=== PATIENT | female | born 1975 | race Caucasian/White ===

== ENCOUNTER 2023-07-25 11:51 | Day surgery (SDC) | payer OTHER, SELFPAY ==
[2023-07-24 13:33] VITALS: BMI 39.9
[2023-07-25] VITALS (11 sets, daily range): BP systolic 102–136; BP diastolic 55–90; PULSE 66–97; RESP 11–17; TEMP 36–36.8; O2SAT 95–100; BMI 39.9
--- NOTE | 2023-07-25 | DI.RAD.S_ITS ---
PROCEDURE: XR HIP W PEL IF DONE LT 2V INDICATIONS: SANTOSH TECHNIQUE: 6 intraoperative fluoroscopic images of pelvis and left hip acquired. COMPARISON: None. FINDINGS: Intraoperative fluoroscopic images shows left total hip arthroplasty in progress. Left hip alignment is anatomic. IMPRESSION: Fluoro guidance was provided intraoperatively for left total hip arthroplasty. Dictated by: Ashvin Reyes M.D. on 07/25/2023 at 16:20 Approved by: Ashvin Reyes M.D. on 07/25/2023 at 16:20
--- NOTE | 2023-07-25 06:00 | DI.RAD.S_ITS ---
PROCEDURE: XR HIP W PEL IF DONE LT 2V INDICATIONS: post-op SANTOSH TECHNIQUE: AP pelvis and lateral view of the hip acquired. [facility] IF D[facility] 2V, 07/25/2023, 15:14. FINDINGS: Bones: Patient is status post left hip arthroplasty, with hardware components in expected positions. The hip joint appears congruent. The visualized bony structures appear intact. Soft tissues: Overlying postoperative changes are noted. No suspicious soft tissue densities. IMPRESSION: Expected post-operative appearance of a hip arthroplasty. Dictated by: Skylar Nowak M.D. on 07/26/2023 at 16:23 Approved by: Skylar Nowak M.D. on 07/26/2023 at 16:23
--- NOTE | 2023-07-25 13:02 | PM.PREOP ---
Pre-operative Note Interval Note History & Physical reviewed/Exam performed by Physician: Yes Changes to H&P: No
[2023-07-25] MEDS: LACTATED RINGERS 1,000 ML 42 ML IV ×2 (13:07→15:05)
[2023-07-25] MEDS: ACETAMINOPHEN 325 MG TABLET 975 MG PO (13:16)
[2023-07-25] MEDS: MELOXICAM 7.5 MG TABLET PO (13:17)
[2023-07-25] MEDS: VANCOMYCIN 1,000 MG/200 ML PIGGYBACK 200 MG IV (13:21)
--- NOTE | 2023-07-25 13:43 | SUR.OPER ---
Supine on padded [place] table with bilateral legs secured in padded positioning boots and suspended in positioning spars, operative leg in traction per surgeon. Head on one pillow. Arms secured on padded armboard <90 degrees abduction. Padded perineal post in place per surgeon.
[2023-07-25 13:55] LABS: Add Manual Diff / Slide Review NO; Basophils Absolute Auto 0 /uL (0-100); Basophils Percent Auto 0.5 % (0-2); Eosinophils Absolute Auto 100 /uL (0-450); Eosinophils Percent Auto 2.3 % (2-4); Hemoglobin 13.5 g/dL (12.0-16.0); Lymphocytes Absolute Auto 2100 /uL (1100-4500); Lymphocytes Percent Auto 35.3 % (25-40); Mean Corpuscular HGB Conc 33.8 % (30-36); Mean Corpuscular Hemoglobin 30.6 PG (26-34); Mean Corpuscular Volume 90.6 fL (80-100); Monocytes Absolute Auto 400 /uL (0-900); Monocytes Percent Auto 7.6 % (3-14); Neutrophils Absolute Auto 3200 /uL (1500-7000); Neutrophils Percent Auto 54.3 % (50-75); Platelet Count 184 X10^3/uL (150-400); Red Blood Cell Count 4.42 X10^6/uL (4.0-5.2); Red Cell Distribution Width 12.7 % (11.6-14.8); White Blood Cell Count 5.9 X10^3/uL (4.5-11.0)
[2023-07-25 14:05] LABS: BUN Creatinine Ratio 25.5 (6-22); Blood Urea Nitrogen 14 mg/dL (7-17); Calcium 9.4 mg/dL (8.4-10.2); Carbon Dioxide 30 mmol/L (22-32); Chloride 108 mmol/L (98-107); Estimated Glomerular Filt Rate > 60 mL/min (>60); Glucose 102 mg/dL (70-100); HEMOLYSIS < 15 (0-50); Potassium 4.1 mmol/L (3.4-5.1); Sodium 141 mmol/L (137-145)
[2023-07-25] MEDS: CEFAZOLIN 2 GM/100 ML PREMIX 100 ML IV (14:40)
[2023-07-25] MEDS: TRANEXAMIC ACID 1,000 MG VIAL 1000 MG INJ (15:01)
[2023-07-25] MEDS: ROPIVACAINE/EPI/CLONIDINE/KET 50 ML SYRINGE INJ (15:01)
--- NOTE | 2023-07-25 16:39 | P.OP_ITS ---
Operative Date/Time/Diagnoses Date of procedure: 07/25/23 Pre-op diagnosis: Left hip arthritis Post-op diagnosis: same Procedure & Clinicians Procedure: Left total hip arthroplasty (06741) Same procedure as scheduled: Yes Surgeon: Corey Cason Vertical Punch Operator: Paula Nowak Anesthesia Type: Spinal, Sedation and Local Operative Notes Estimated Blood Loss (mL): 500 Procedure in detail: Implants: Depuy Total Hip Arthroplasty: * Depuy Wink Gription size 52 cup? * Depuy Actis femoral stem size 7 high offset? * 36 mm +5 ceramic femoral head? Procedure Summary: 48-year-old female with a history of prior Chevy-en-Y gastric bypass. Has lost significant weight, now with BMI of 39.9. In preparation for surgery I had her utilize vitamin-D supplementation in addition to her standard vitamin supplementation and also had her utilize low-carbohydrate protein supplements. Intraoperatively I was able to achieve an appropriate pinch fit with a 52 mm cup which did not require screws. Her initial trials were performed with a size 7 high offset stem and a +1.5 head. I noted instability with maximum external rotation with the +1.5 head. After up sizing to a +5 head, she had appropriate stability. Leg length, offset, and stem fit were all appropriate fluoroscopically. These implants were utilized Procedure in Detail: This patient was seen preoperatively and evaluated for hip pain which was refractory to numerous nonoperative treatment modalities. Their hip pain correlated with radiographic changes demonstrating significant degeneration in the hip joint. The risks and benefits of continued nonoperative management versus operative management were discussed at length and all of the patient?s questions were answered. Additional educational materials providing further details beyond our discussion in clinic were provided via a publicly available patient education video which included the incidence of medical complications associated with total hip arthroplasty, reasons for revision following total hip arthroplasty, and patient satisfaction rates following total hip arthroplasty. That video can be accessed at [email or web address] . With this understanding of the risks inherent to the procedure, the patient elected to move forward with operative management. Following preoperative optimization, the patient was scheduled for surgery. The patient was met in the preoperative holding area the day of the procedure and all questions were answered. The patient?s nares were swabbed with betadine in order to decolonize them from MRSA. Informed consent was signed and the operative limb was marked with indelible ink.? The patient was brought back to the operating room where anesthesia was induced. The patient was transferred to the [place] table and all bony prominences were padded. The operative site was prepped and draped in the usual sterile fashion. Prior to incision, tranexamic acid and cefazolin were administered. Operative templating images were displayed demonstrating the anticipated implant sizes and correct operative extremity. A timeout procedure was performed verifying the patient?s identity, medical comorbidities, allergies, relevant medications, anesthesia type and the surgical plan. All present were in agreement. The assistance of a physician psychologist research assistant was required for positioning, room setup, soft tissue retraction and wound closure. Without this assistance, the procedure would have been significantly more challenging and time consuming.?? A direct anterior approach to the hip was utilized. This was performed with a longitudinal incision through a Heuter interval. The incision was planned 2 cm distal and 2 cm lateral to the ASIS extending towards the lateral patella, in line with the muscle body of the TFL. Following incision, the subcutaneous tissue was dissected while taking care to avoid injury to the lateral femoral cutaneous nerve. The fascia overlying the TFL was identified by dissecting off the overlying fat and identifying perforating vessels to the TFL. The TFL fascia was incised and dissected away from the medial border of the TFL. A cobra retractor was placed over the superior femoral neck between the abductors and the hip capsule and used to reflect the TFL laterally. A [place] self-retainer was then placed in the distal aspect of the wound between the TFL and the rectus femoris. This was tensioned to open up the direct anterior interval and the lateral circumflex vessels were identified and coagulated using electrocautery. The floor of the TFL fascia was incised, exposing the pericapsular fat overlying the hip capsule. A second cobra retractor was placed on the inferior femoral neck. A double-bent soft tissue retractor was placed on the anterior wall of the acetabulum and used to tension the reflected head of rectus femoris, which was then released in order to limit soft tissue tension. A capsulotomy was made in the midline of the anterior hip capsule in line with the femoral neck ending at the vastus tubercle. The double-bent retractor was removed in order to limit the amount of time that a soft tissue retractor remained on the anterior wall and protect the femoral nerve. Tag stitches were placed in the superior and inferior leaflets of the hip capsule. An [place]es[place] soft tissue retractor was introduced over the tag stitches and tensioned in the interval between the rectus femoris and the TFL in order to retract and protect those muscles. The cobra retractors were replaced intracapsularly, with one over the superior neck in the pocket created by the base of the greater trochanter and the other on the femoral head. The capsulotomy was extended laterally to the base of the greater trochanter and medially to the lesser trochanter. This required externally rotating the hip. Once the lesser trochanter had been identified, a neck cut was planned according to measurements from preoperative templating. A ruler was cut at the length measured between the superior aspect of the lesser trochanter and the collar of the prosthesis. This line was extended towards the inferior aspect of the lateral cobra retractor to plan a cut which would leave minimal residual femoral neck laterally. The neck was cut at 60 degrees of external rotation along that line. A second cut was performed to remove a large napkin ring and facilitate head extraction. The napkin ring cut and femoral head were removed.?? A broad anterior wall retractor was placed between the labrum and the anterior capsule so that the anterior capsule would prevent capturing and pinching the femoral nerve anteriorly. An additional retractor was placed on the posterior wall. External rotation and traction were applied through the [place] table so that the cut surface of the femoral neck would not restrict access to the acetabulum. The labrum was excised sharply and the pulvinar was excised with electrocautery to limit bleeding from branches of the obturator artery. Acetabular reamers were selected based on preoperative templating and measurements of the excised femoral head. These were introduced into the acetabulum. Fluoroscopy was utilized to replicate a standing AP pelvis radiograph by centering over the pelvis, rotating until there was appropriate symmetry between the obturator foramen, and introducing caudal tilt to match the position of the pubic symphysis relative to the sacrococcygeal junction according to the patient?s anatomy. Fluoroscopy was utilized to ensure appropriate reaming depth. Once satisfied with the reaming depth corresponding to the preoperative template and the pinch fit between the columns, an appropriate sized acetabular cup was selected which would provide 1 mm of press-fit. This cup was introduced and manipulated until appropriate abduction and anteversion angles were obtained with careful attention to appropriate abduction and anteversion angles as evaluated by the position of the cup relative to the anterior and posterior santana of the acetabulum and the AP fluoroscopy which recreated the patient?s standing radiograph. The cup was impacted into place. Peripheral osteophytes were removed. The acetabular liner was then placed with care to ensure locking of the locking mechanism.? Attention was then turned to the femur. All retractors were removed, traction was released, a retractor was placed in the interval between the hip capsule and the gluteus minimus, and the hip was externally rotated to 90 degrees. Traction was applied through the [place] table to tension the lateral capsule and this was released using electrocautery. Traction was released and a [place] hook was placed posteriorly around the proximal femur at the level of the vastus ridge. The table height was lowered in order to restrict the tension on the anterior structures during hip hyperextension to limit the risk of femoral nerve palsy. With traction off and the hip at 90 degrees of external rotation, the hip was hyperextended and adducted while manually elevating the femur away from the acetabulum with the [place] hook to ensure it would not be caught behind the greater trochanter. An asymmetric retractor was placed over the calcar and a broad double-pronged retractor was placed over the greater trochanter. The tag stitch capturing the lateral leaflet of the capsule was moved to the medial side, leaving the conjoined and piriformis tendons isolated in the face of the greater trochanter. The hip was externally rotated and elevated. A release of the conjoined tendon was not necessary in order to obtain adequate exposure for broaching. The canal was opened with an opening broach and a rasp was used to remove cancellous bone. A rongeur was used to remove the residual lateral bone at the base of the greater trochanter to avoid placing the stem in varus. The femur was then broached to the appropriate sized stem yielding good rotational fit and fill of the canal as well as appropriate version of the stem trial. Neck and head trials were placed, all retractors were removed and the hip was returned to neutral abduction and extension. I then reduced the hip. Manual stability testing revealed instability with a proximally 90? of external rotation with that +1.5 head size switched to a +5 head.. An AP pelvis fluoroscopic image matching the preoperative standing radiograph was obtained with both lesser trochanters visible and both hips in 40 degrees of external rotation. This demonstrated appropriate leg length and offset. An AP hip fluoroscopic image was obtained with the hip in neutral rotation which demonstrated appropriate canal fill. Hip stability was evaluated with 90 degrees of external rotation and a 45 degree drop test which demonstrated good stability. The hip was dislocated and I returned to the broaching position. The definitive stem was placed and the trunnion was cleaned and dried. I placed a ceramic head onto the trunnion and impacted it into place on the [place] taper.?? All retractors were removed and the hip was reduced. A dilute mixture of betadine and peroxide was used to bathe the soft tissues during final fluoroscopic assessment. Appropriate component positioning was confirmed on an AP pelvis radiograph with the operative and nonoperative legs in 40 degrees of external rotation, evaluating leg length and offset. Appropriate stem fill was evaluated on an AP hip radiograph with the operative leg in neutral rotation. No fractures were identified on these radiographs. Stability was satisfactory with a 90 degree external rotation test as well as a 45 degree drop test. The hip was copiously irrigated with pulse lavage. The capsule was closed with absorbable interrupted suture. The TFL fascia was closed with barbed suture while carefully protecting the lateral femoral cutaneous nerve from entrapment. A mixture of Ropivacaine, Epinephrine, Clonidine and Toradol was infiltrated throughout the soft tissues. The skin was closed with 2-0 and 3-0 sutures. Surgical glue was applied and a soft dressing was placed.??The sponge, instrument and needle counts were reported as being correct at the end of the case.??No obvious complications occurred. The patient was transferred from the [place] table back to a stretcher. The patient emerged from anesthesia without difficulty and was taken to the PACU in a stable condition.? Plan for aftercare: * Anterior hip precautions * Weightbearing as tolerated * Mobilization as soon as the patient has recovered from anesthesia. If physical therapists are unavailable at the time the patient is ready to ambulate, then nursing staff should help patient ambulate * Aspirin 81 twice per day for DVT prophylaxis * Multimodal pain regimen with liquid opioids as patient has trouble with pill formulations of opioids. Should be sent home with liquid opioids for home as well * Anticipate discharge home tomorrow * Follow up at [facility] in 2 weeks * Detailed postoperative instructions available at [email or web address]
[2023-07-25] MEDS: ACETAMINOPHEN IV 1,000 MG/100 ML VIAL 400 MG IV (16:48)
[2023-07-25] MEDS: hydrOXYzine 50 MG/ML INJ 25 MG IM (16:57)
--- NOTE | 2023-07-25 17:12 | P.PN_ITS ---
Subjective Subjective Interval history: Patient seen postoperatively in the PACU. She has had some nausea since surgery. No vomiting. This was managed with Vistaril and is improving. She says she is ?uncomfortable but tolerable? with regards to her pain. She has her ice machine in place. She has intact function of her sciatic and femoral nerves as evidenced by normal motor function of the knee and ankle. She has a warm perfused foot. We will get her up to the floor shortly and plan for her to remain in the hospital overnight before working with physical therapy tomorrow and eventual discharge home tomorrow morning. Exam Vital Signs (past 8 hours): - 07/25/23 12:38 Temperature 97.2 F L Pulse Rate 72 Respiratory Rate 16 Blood Pressure 135/88 Pulse Oximetry 98 Oxygen Delivery Method Room Air Oxygen Delivery Method Room Air Objective Labs 07/25/23 12:58 07/25/23 12:58 Labs: Laboratory Results - last 24 hr 07/25/23 12:58 WBC 5.9 RBC 4.42 Hgb 13.5 Hct 40.0 MCV 90.6 MCH 30.6 MCHC 33.8 RDW 12.7 Plt Count 184 Neut % (Auto) 54.3 Lymph % (Auto) 35.3 [place] % (Auto) 7.6 Eos % (Auto) 2.3 Baso % (Auto) 0.5 Neut # (Auto) 3200 Lymph # (Auto) 2100 [place] # (Auto) 400 Eos # (Auto) 100 Baso # (Auto) 0 Sodium 141 Potassium 4.1 Chloride 108 H Carbon Dioxide 30 BUN 14 Creatinine 0.55 Estimated GFR > 60 BUN/Creatinine Ratio 25.5 H Glucose 102 H Calcium 9.4 Blood Type O Positive Antibody Screen Negative Crossmatch See Detail PFSH Social History household members: spouse Smoking Status: Former smoker
[2023-07-25] MEDS: HYDROMORPHONE 1 MG INJ IV ×2 (17:16→17:20)
[2023-07-25] MEDS: LACTATED RINGERS 1,000 ML 100 ML IV (18:06)
[2023-07-25] MEDS: OXYCODONE 5 MG/5 ML ORAL SOLUTION PO (18:56)
[2023-07-25] MEDS: DOCUSATE 100 MG CAPSULE PO (20:52)
[2023-07-25] MEDS: ASPIRIN EC 81 MG TABLET PO (20:52)
[2023-07-25] MEDS: IBUPROFEN 600 MG TABLET PO (22:46)
[2023-07-25] MEDS: ACETAMINOPHEN 325 MG TABLET 650 MG PO (22:46)
[2023-07-25] MEDS: ONDANSETRON 4 MG/2 ML INJ IV (22:50)
[2023-07-25] MEDS: OXYCODONE 5 MG/5 ML ORAL SOLUTION 10 MG PO (22:50)
[2023-07-25] MEDS: CEFAZOLIN VIAL 3 GM in SODIUM CHLORIDE 0.9% 100 ML IV (22:57)
[2023-07-26] MEDS: OXYCODONE 5 MG/5 ML ORAL SOLUTION 10 MG PO ×2 (02:46→10:01)
[2023-07-26 02:48] VITALS: BP 105/63; PULSE 69; RESP 16; TEMP 35.9; O2SAT 97
[2023-07-26 05:04] LABS: Hematocrit 31.1 % (36-46); Hemoglobin 10.7 g/dL (12.0-16.0)
[2023-07-26] MEDS: IBUPROFEN 600 MG TABLET PO (06:16)
[2023-07-26] MEDS: CEFAZOLIN VIAL 3 GM in SODIUM CHLORIDE 0.9% 100 ML IV (06:16)
[2023-07-26] MEDS: ACETAMINOPHEN 325 MG TABLET 650 MG PO (06:19)
[2023-07-26] MEDS: OXYCODONE 5 MG/5 ML ORAL SOLUTION PO (07:10)
[2023-07-26] MEDS: DOCUSATE 100 MG CAPSULE PO (08:22)
[2023-07-26] MEDS: ASPIRIN EC 81 MG TABLET PO (08:22)
--- NOTE | 2023-07-26 08:40 | PT.IIE ---
Current Diagnoses Unilateral primary osteoarthritis, left hip (07/25/23) Presence of unspecified artificial hip joint (07/25/23) Surgery Performed Operation Date: 07/25/23 13:45 Actual Procedures p Total Hip Arthroplasty/Anterior Approach(Left) - Corey Cason MD Physical Therapy Inpatient Evaluation/Re-Eval M1 PT/OT-IP Prior Functional Status Start: 07/26/23 12:45 Freq: NEEDED Status: Active Protocol: Document 07/26/23 08:40 AB (Rec: 07/26/23 13:04 AB [id number]) Medical Review Prior Functional Status Medical History Reviewed Yes Communication able to make needs known Mobility and Gait pt stated that she was indpeendent with all mobilities and ambulation without AD with occasional use of FWW Social History Household Members spouse Living Arrangements House Number of Floors (Floors) Two Floors Number of Stairs To Enter/Railing? 20 steps R rail ascending to 2nd floor bed room Home Environment Standard Height Toilet,Tub/ Shower Home Equipment Front Wheel Walker,Raised Toilet Seat Without Armrests, Hand Held Shower,Grab Bars In Shower Additional Social History Comment tp has a hospital bed wtih B rails M2 PT-IP Current Condition Start: 07/26/23 12:45 Freq: NEEDED Status: Active Protocol: Document 07/26/23 08:40 AB (Rec: 07/26/23 13:04 AB [id number]) Physical Therapy Current Condition Current Condition Evaluation Date 07/26/23 Treatment Diagnosis s/p L SANTOSH anterior; difficulty in walking Onset Date 07/25/23 M3 PT-IP Subjective Start: 07/26/23 12:45 Freq: NEEDED Status: Active Protocol: Document 07/26/23 08:40 AB (Rec: 07/26/23 13:04 AB [id number]) Subjective Physical Therapy Visit Type Type Initial Evaluation Visit Start Time 08:40 Visit Stop Time 11:08 Notes pt seen for split visits: 840 to 910 and 1025 am to 1108 Number of HOT METAL CHARGER Visits 0 Physical Therapy Visit Comments Patient Comments agreeable to do PT Therapy Pain Assessment Pain When Pain Assessed At Rest Pain Present Pain Present Pain Reported Location back Intensity 6 Scale Used Numeric (0 - 10) Pain Management Techniques Apply Cold,Distraction, Modification of Treatment,Re- positioning,Timing of Activity with Medications M4 PT-IP Mobility and Gait Start: 07/26/23 12:45 Freq: NEEDED Status: Active Protocol: Document 07/26/23 08:40 AB (Rec: 07/26/23 13:04 AB [id number]) PT-Bed Mobility Assessment Supine to Sit Supine to Sit Standby Assistance PT-Transfer Assessment Sit to and From Stand Sit to and from Stand Contact Guard Assistance,1 Person Assistance,Use of Upper Extremities Equipment Transfer Assistive Device Gait Belt,Front Wheeled Walker Orthotic/Prosthetic Devices or Brace: No Transfers Transfer Destination Chair Transfer Technique ambulated Comments Mobility Comments nurse informed PT that pt's next pain meds will be at 10am and to see pt after 10. checked on pt and agreed to initiate eval. spouse in room with pt. obtained PLOF and home set up. educated on equipement needs. post-op folder also provided to pt and educated on anterior hip precautions on LLE. pt got a little frustrated due to information being different from what her pre-op PT told her. explain hip precautions to pt. checked back on pt after 10 am and pt agreed to do PT. pt stated that she has been using the toilet with spouse assisting her in her room without any issues. MMT checked in supine. completed heel slides on LLE requiring AAROM due to c/o pain and tightness. instructed spouse on how to assist pt with heel slides at home. pt completed supine to sit SBA with HOB elevated. pt able to sit on EOB SBA. pt completed sit to stand CGA and ambulated in room using FWW CGA ~ 20 ft . pt sat back on EOB. caregiver training conducted. educated spouse on how to use safety belt and how to assist pt. spouse was able to put safety belt on pt. spouse assisted pt with sit to stand and ambulation in the hallway using FWW CGA ~ 125 ft. stair climbing training. educated pt and spouse regarding stair training. pt completed up/down steps holding on to R rail with B hands CGA to min A and cues. pt only completed 1 set and refused to do further. stated that she got it and spouse comfortable with assist pt with mobility. assisted pt back to her room. pt also refused to bed mobility training and stated that her spouse has helped her into the bed a few times already in her room when she used the toilet. pt ambulated from w/c to chair using fWW sBA to CGA. positioned pt in bed. call light and table placed within reach. pt and spouse without further concerns. informed nurse that pt is awaiting for d/c. Gait Assessment Gait Gait Assistance Required: Standby Assistance,Contact Guard Assist,1 Person Assist Distance (Feet) 125 Able to Maintain Weight Bearing Status Yes During Gait Assistive Devices Assistive Device Gait Belt,Front Wheeled Walker Orthotic/Prosthetic Devices or Brace: No Gait Deviations General Gait Pattern Antalgic,Decreased Feet Clearance Factors Limiting Gait Function Factors Limiting Gait Function Decreased Activity Tolerance, Decreased Strength,Limited Range of Motion,Pain,Poor Balance,Poor Safety Awareness Stair Climbing Assessment Evaluation Level of Assist On Stairs Contact Guard Assistance, Minimal Assistance,1 Person Assistance Devices Stair Climbing Assistive Devices Right Railing Technique/Endurance Stair Climbing Direction Ascend and Descend Stair Climbing Technique Step to Step Number of Steps Climbed 3 Query Text: Stair Climbing Set # Repetitions (reps) 1 PT-Balance Assessment Sitting Balance and Reactions Static Sitting Balance Ability Good Dynamic Sitting Balance Ability Good Standing Balance and Reactions Static Standing Balance Ability Fair Dynamic Standing Balance Ability Fair Device Used FWW M5 PT-IP Objective Assessments Start: 07/26/23 12:45 Freq: NEEDED Status: Active Protocol: Document 07/26/23 08:40 AB (Rec: 07/26/23 13:04 AB [id number]) Orientation Orientation/Cognition Level of Alertness Alert Orientation Name,Place,Situation Language Function Ability No Deficits Noted Safety Awareness Decreased Safety Awareness Memory Description No Deficits Noted Gross Range of Motion Lower Extremity ROM Assessment Within Functional Limits Strength Lower Extremity Strength Assessment Left Impaired Hip 3-/5 Knee 3+/5 Muscle Tone Muscle Tone WNL Yes M6 PT-IP Treatment Start: 07/26/23 12:45 Freq: NEEDED Status: Active Protocol: Document 07/26/23 08:40 AB (Rec: 07/26/23 13:04 AB [id number]) Physical Therapy Treatment Education Education Provided Precautions,Weight Bearing Status,Post-Op Packet,Safety M7 PT-IP Assessment and Plan Start: 07/26/23 12:45 Freq: NEEDED Status: Active Protocol: Document 07/26/23 08:40 AB (Rec: 07/26/23 13:04 AB [id number]) PT Summary Assessment and Plan Potential Rehabilitation Potential Fair Status of Condition at Evaluation Evolving Summary Impairments Pain,ROM,Strength,Balance, Coordination,Sensation,Tone, Cognition,Bed Mobility, Transfers,Gait,Activity Tolerance Assessment Summary pt is a 48 y/o F s/p L SANTOSH anterior approach POD 1. pt has LLE anterior hip precautions and is WBAT. caregiver training conducted and spouse was able to assist pt. pt state that she has outpt PT set up. pt may go home when medically stable. Goals Bed Mobility Goal Independent Transfer Goal Independent,Front Wheeled Walker Gait Goal Independent,Front Wheel Walker Gait Distance 200 Other Goals up/down 20 steps R rail SBA Days to Meet Goals 5 Frequency of Treatment Frequency Of Treatment Twice a Day Treatment Plan Physical Therapy Treatment Plan Bed Mobility Training,Transfer Training,Gait Training, Therapeutic Exercise,Balance Retraining,Post Op Education, Discharge Planning,Hot or Cold Pack,Neuromuscular Re-ed, Coordination Retraining,Manual Therapy Precautions Anterior Hip Precautions No Hip Extension,No Hip External Rotation Weight Bearing Status Weight Bearing Status Weight Bear as Tolerated Allowed Weight Bearing Amount (enter % LLE WBAT or #) (%) Recommendations To Nursing Amount of Assist Needed 1 Person Assist Discharge Recommendations PT Discharge Recommendations Home with Assistance, Outpatient PT Transportation Needs at Discharge Private Vehicle
[2023-07-26 09:22] VITALS: BP 111/66; PULSE 67; RESP 16; TEMP 37; O2SAT 98
--- NOTE | 2023-07-26 09:56 | PM.DS.1 ---
History of Present Illness History of Present Illness Date Patient Seen: 07/26/23 Time Patient Seen: 09:56 Chief complaint: Left SANTOSH *OPB* Narrative: Operative Date/Time/Diagnoses Date of procedure: 07/25/23 Pre-op diagnosis: Left hip arthritis Post-op diagnosis: same Procedure & Clinicians Procedure: Left total hip arthroplasty (11814) Same procedure as scheduled: Yes Surgeon: Corey Cason Senior User Experience Architect: Paula Nowak Anesthesia Type: Spinal, Sedation and Local Operative Notes Estimated Blood Loss (mL): 500 Procedure in detail: Implants: Depuy Total Hip Arthroplasty: Depuy [place] Gription size 52 cup? Depuy Actis femoral stem size 7 high offset? 36 mm +5 ceramic femoral head? Discharge Providers Provider Discharge Date: 07/26/23 Primary care physician: Jayme Alamo MD Consults: 07/25/23 06:00 Consult to Anesthesiology Routine Comment: Consulting Provider: Anesthesiologist Reason for consultation: Regional block for post operative pain control 07/25/23 17:44 Consult to Discharge Planning Routine Comment: Consult to Physical Therapy Evaluate & Treat Comment: Physician Instructions: post op SANTOSH protocol Discharge provider: Maureen Melendez PA-C Summary Hospital Course Discharge Diagnosis: Left hip osteoarthritis, s/p left total hip arthroplasty Hospital Course: Ms Espinoza's hospital course was unremarkable. On the morning of POD# 1, she was feeling well and wanted to go home. She was eating and voiding without difficulty and her pain was well-controlled with oral medication. She was evaluated by PT prior to discharge and they felt she was appropriate for homegoing. Exam Vital Signs (past 8 hours): - 07/26/23 02:48 07/26/23 07:00 07/26/23 09:22 Temperature 96.7 F L 98.6 F Pulse Rate 69 67 Respiratory Rate 16 16 Blood Pressure 105/63 111/66 Pulse Oximetry 97 98 Oxygen Delivery Method Room Air Oxygen Flow Rate 0 Oxygen Delivery Method Room Air Oxygen Flow Rate 0 Narrative Exam Narrative: 5/5 strength in hip flexors, quadriceps, hamstrings, DF, PF, EHL on right. Sensation to light touch intact throughout RLE, calf soft and compressible. Aquacel dressing CDI. Objective Labs 07/26/23 04:23 07/25/23 12:58 Labs: Laboratory Results - last 24 hr 07/25/23 07/26/23 12:58 04:23 WBC 5.9 RBC 4.42 Hgb 13.5 10.7 L Hct 40.0 31.1 L MCV 90.6 MCH 30.6 MCHC 33.8 RDW 12.7 Plt Count 184 Neut % (Auto) 54.3 Lymph % (Auto) 35.3 Major % (Auto) 7.6 Eos % (Auto) 2.3 Baso % (Auto) 0.5 Neut # (Auto) 3200 Lymph # (Auto) 2100 Major # (Auto) 400 Eos # (Auto) 100 Baso # (Auto) 0 Sodium 141 Potassium 4.1 Chloride 108 H Carbon Dioxide 30 BUN 14 Creatinine 0.55 Estimated GFR > 60 BUN/Creatinine Ratio 25.5 H Glucose 102 H Calcium 9.4 Blood Type O Positive Antibody Screen Negative Crossmatch See Detail PFSH Social History household members: spouse Smoking Status: Former smoker Discharge Assessment & Plan Assessment and Plan Assessment: Left hip osteoarthritis, s/p left total hip arthroplasty Plan of Treatment: Discharge home, ASA BID x 6 weeks for VTE prophylaxis, no NSAIDs d/t h/o gastric bypass. Multimodal pain control to include liquid hydrocodone and APAP, outpt PT, f/u in office in 2 weeks as scheduled. Discharge Plan Discharge Plan Patient Disposition: Home Discharge orders & Medications Discharge Orders: Discharge (Order); Ordered 07/26/23 Ordered By: Maureen Melendez Prescriptions: New hydrocodone-acetaminophen 7.5-325 mg/15 mL solution 15 ml PO Q4-6H PRN (Reason: pain (scale score 4-6)) Qty: 473 0RF aspirin 81 mg Tablet,Delayed Release (Dr/Ec) 81 mg PO BID Qty: 90 0RF acetaminophen 500 mg/15 mL liquid 500 mg PO QID PRN (Reason: fever or pain) Qty: 237 0RF Rx Instructions: DO NOT EXCEED 3000MG TOTAL ACETAMINOPHEN IN 24 HOURS Discontinued tramadol 50 mg tablet 50 mg PO 3XD Follow up/Referrals: Corey Cason MD [Physician] - 08/07/23 2:30 pm (Follow up w/ Manuel Albert PA-C, at [facility] office in [place].) Jayme Alamo MD [Primary Care Provider] - Diet/Activity/Treatments Diet: Diet as Tolerated Activity: Weightbearing as tolerated to right leg. Anterior hip precautions. Cold/Heat Therapy: Ice to hip as needed for pain. Skin/Wound/Dressing Care Report to your healthcare provider any signs of infection, such as:: chills, fever, night sweats, unusual drainage and unusual redness Dressing: May shower. Leave dressing in place until follow up in office. No bathing or otherwise soaking incision. Call the office if the dressing becomes saturated inside. Visit Report/Discharge Packet Instructions: DI for Hip Replacement, DI for Prescription Opioid Use Stand Alone Forms: Patient Portal/API, Surgery Discharge Discharge Data Primary Care Provider: Jayme Alamo Attending Provider: Corey Cason
--- NOTE | 2023-07-26 10:57 | CM.DANOTE ---
Initial DCP Assessment Note Pt is a 48 yo female, resident of [place], now POD#1 from s/p left total hip arthroplasty by DR Cason PCP: Jayme Alamo Payer: Dagmar Reviewed chart, pt discussed in multidisciplinary rounds this morning. Therapy has cleared pt for return home w/family to assist and pt has planned for home, DC order from Ortho has already been initiated this morning. No barriers identified at this time to patient's safe discharge home w/family to assist; close outpatient f/u recommended. CM team will plan to follow closely in case any DC needs or concerns arise. SEBLE Saleh Discharge Planning/Care Management CM Discharge Assessment Start: 07/26/23 10:43 Freq: Status: Active Protocol: Document 07/26/23 10:43 LORI (Rec: 07/26/23 10:57 LORI [id number]) Discharge Planning Assessment Assigned Cloth Picker SEBLE Dyer DPOA/Assigned Designee Name Vipin Espinoza, spouse Contact Information [phone] Advance Directives? No History Provided By Patient,Significant Other, Medical Record Prior Living Arrangements House Household Members spouse Type of transporation used prior to Drives own vehicle admit Independent with ADL's Yes Is patient alert and oriented? Yes Patient/Family Preference OP PT Therapy Barriers to Discharge No Comment Home w/spouse Discharge Plan Home Transportation Arrangement Spouse Referrals Initiated None needed
--- NOTE | 2023-07-26 11:34 | PC.NURSE ---
Patient discharge teaching done with patient and spouse at bedside. Printed prescriptions were handed to patient to take to pharmacy. Belongings were gathered by spouse. Patient and spouse state understanding of hip precautions, meds, and all teaching of discharge. Will call when ready to depart from room.
== END 2023-07-26 12:00 | disposition home or self-care (01) ==
LOC: OR 11:55 → AC 11:58
PROVIDERS: Student in an Organized Health Care Education/Training Program; PCP Family Medicine; Referring Provider Family Medicine; Visit Provider Orthopaedic Surgery Adult Reconstructive Orthopaedic Surgery
PROC: (CPT 27130; principal; 2023-07-25 13:45)
DX: M16.12 Unilateral primary osteoarthritis, left hip (principal); E66.01 Morbid (severe) obesity due to excess calories; Z68.39 Body mass index [BMI] 39.0-39.9, adult
CPT/HCPCS: 27130; 36415; 73502; 76000; 80048; 85014; 85018; 85025; 86850; 86900; 86901; 97161; 97530; C1776; J0136; J0690; J1100; J1170; J1200; J2250; J2405; J2704; J3010; J3410

== ENCOUNTER 2023-10-18 11:27 | Observation (INO) | payer OTHER, SELFPAY ==
[2023-07-25 12:02] VITALS: BMI 39.9
[2023-10-06 13:46] VITALS: BMI 39.4
[2023-10-17] VITALS (18 sets, daily range): BP systolic 93–137; BP diastolic 44–86; PULSE 55–96; RESP 12–18; TEMP 35.7–37.3; O2SAT 94–100; BMI 39.4; BMI 39.0
--- NOTE | 2023-10-17 | DI.RAD.S_ITS ---
PROCEDURE: XR HIP W PEL IF DONE RT 2V INDICATIONS: RT TOTAL HIP TECHNIQUE: 4 operative view(s) of the hip acquired. [facility] LT 2[facility], 07/25/2023, 16:31. FINDINGS: 4 operative C-arm images were obtained during performance of a total right hip arthroplasty. No radiographic evidence of complications. IMPRESSION: Operative imaging utilized during total right hip arthroplasty. Dictated by: Law Kendall M.D. on 10/17/2023 at 17:37 Approved by: Law Kendall M.D. on 10/17/2023 at 17:38
--- NOTE | 2023-10-17 07:25 | DI.RAD.S_ITS ---
PROCEDURE: XR HIP W PEL IF DONE RT 2V INDICATIONS: SANTOSH TECHNIQUE: AP pelvis and lateral view of the hip acquired. COMPARISON: [facility], [facility], XR HIP W PEL IF DONE RT 2V, 10/17/2023, 14:52. [facility], [facility], XR HIP W PEL IF DONE LT 2V, 07/25/2023, 16:31. FINDINGS: Bones: Patient is status post right hip arthroplasty, with hardware components in expected positions. The hip joint appears congruent. The visualized bony structures appear intact. Soft tissues: Overlying postoperative changes are noted. No suspicious soft tissue densities. IMPRESSION: Expected post-operative appearance of a hip arthroplasty. Dictated by: Jason Simon M.D. on 10/17/2023 at 17:00 Approved by: Jason Simon M.D. on 10/17/2023 at 17:00
[2023-10-17] MEDS: LACTATED RINGERS 1,000 ML 42 ML IV ×2 (12:46→15:22)
[2023-10-17] MEDS: ACETAMINOPHEN 325 MG TABLET 975 MG PO (12:49)
--- NOTE | 2023-10-17 13:45 | PM.PREOP ---
Pre-operative Note Interval Note History & Physical reviewed/Exam performed by Physician: Yes Changes to H&P: No
--- NOTE | 2023-10-17 14:02 | SUR.OPER ---
Supine on padded [place] table with bilateral legs secured in padded positioning boots and suspended in positioning spars, operative leg in traction per surgeon. Head on one pillow. Arms on non-operative side secured on padded armboards <90 degrees abduction. Padded perineal post in place per surgeon.
[2023-10-17] MEDS: CEFAZOLIN 2 GM/100 ML PREMIX 100 ML IV ×2 (14:15→21:24)
[2023-10-17] MEDS: TRANEXAMIC ACID 1,000 MG VIAL 1000 MG INJ (14:20)
[2023-10-17] MEDS: BUPIVACAINE 0.25% (PF) 60 ML, EPINEPHrine 0.15 MG INJ (14:33)
[2023-10-17] MEDS: BUPIVACAINE LIPOSOME 266 MG/20 ML VIAL INJ (15:28)
--- NOTE | 2023-10-17 15:43 | P.OP_ITS ---
Operative Date/Time/Diagnoses Date of procedure: 10/29/23 Pre-op diagnosis: Right hip osteoarthritis Post-op diagnosis: same Procedure & Clinicians Procedure: Right total hip arthroplasty Same procedure as scheduled: Yes Surgeon: Corey Cason Sludge Filtration Attendant: Maureen Melendez Anesthesia Type: Spinal, Sedation and Local Operative Notes Estimated Blood Loss (mL): 300 Procedure in detail: Right Uncemented Direct Anterior Total Hip Arthroplasty: Implants: Right Depuy Total Hip Arthroplasty: * Depuy Schroeder Gription size 54 cup? * Depuy Actis femoral stem size 7 high offset? * 36 mm +5 ceramic femoral head? Procedure Summary: This 48-year-old female patient had previously undergone a left total hip arthroplasty performed by myself several months prior. Her postoperative course has been routine. During that procedure I placed a 52 cup, a 7 high offset stem, and a 36 mm +5 head. I intended to place the same implant sizes during today's procedure. On the acetabular side I found that the 51 mm Reamer had some slight toggling so I did upsized to a 53 mm Reamer and placed a 54 mm cup. On the femoral side I found that the same size implants gave equal leg length and offset with appropriate stability. I therefore placed the same 7 high offset and 36 mm +5 implants on this side today. Procedure in Detail: This patient was seen preoperatively and evaluated for hip pain which was refractory to numerous nonoperative treatment modalities. Their hip pain correlated with radiographic changes demonstrating significant degeneration in the hip joint. The risks and benefits of continued nonoperative management versus operative management were discussed at length and all of the patient?s questions were answered. Additional educational materials providing further details beyond our discussion in clinic were provided via a publicly available patient education video which included the incidence of medical complications associated with total hip arthroplasty, reasons for revision following total hip arthroplasty, and patient satisfaction rates following total hip arthroplasty. That video can be accessed at [email or web address] . With this understanding of the risks inherent to the procedure, the patient elected to move forward with operative management. Following preoperative optimization, the patient was scheduled for surgery. The patient was met in the preoperative holding area the day of the procedure and all questions were answered. The patient?s nares were swabbed with betadine in order to decolonize them from MRSA. Informed consent was signed and the operative limb was marked with indelible ink.? The patient was brought back to the operating room where anesthesia was induced. The patient was transferred to the [place] table and all bony prominences were padded. The operative site on the right limb was prepped and draped in the usual sterile fashion. Prior to incision, tranexamic acid and cefazolin were administered. Operative templating images were displayed demonstrating the anticipated implant sizes and correct operative extremity. A timeout procedure was performed verifying the patient?s identity, medical comorbidities, allergies, relevant medications, anesthesia type and the surgical plan. All present were in agreement. The assistance of a physician social and human services assistant was required for positioning, room setup, soft tissue retraction and wound closure. Without this assistance, the procedure would have been significantly more challenging and time consuming.?? A direct anterior approach to the hip was utilized. This was performed with a longitudinal incision through a Heuter interval. The incision was planned 2 cm distal and 2 cm lateral to the ASIS extending towards the lateral patella, in line with the muscle body of the TFL. Following incision, the subcutaneous tissue was dissected while taking care to avoid injury to the lateral femoral cutaneous nerve. The fascia overlying the TFL was identified by dissecting off the overlying fat and identifying perforating vessels to the TFL. The TFL fascia was incised and dissected away from the medial border of the TFL. A cobra retractor was placed over the superior femoral neck between the abductors and the hip capsule and used to reflect the TFL laterally. A Vinton self-retainer was then placed in the distal aspect of the wound between the TFL and the rectus femoris. This was tensioned to open up the direct anterior interval and the lateral circumflex vessels were identified and coagulated using electrocautery. The floor of the TFL fascia was incised, exposing the pericapsular fat overlying the hip capsule. A second cobra retractor was placed on the inferior femoral neck. A double-bent soft tissue retractor was placed on the anterior wall of the acetabulum and used to tension the reflected head of rectus femoris, which was then released in order to limit soft tissue tension. A capsulotomy was made in the midline of the anterior hip capsule in line with the femoral neck ending at the vastus tubercle. The double-bent retractor was removed in order to limit the amount of time that a soft tissue retractor remained on the anterior wall and protect the femoral nerve. Tag stitches were placed in the superior and inferior leaflets of the hip capsule. An Onesimo soft tissue retractor was introduced over the tag stitches and tensioned in the interval between the rectus femoris and the TFL in order to retract and protect those muscles. The cobra retractors were replaced intracapsularly, with one over the superior neck in the pocket created by the base of the greater trochanter and the other on the femoral head. The capsulotomy was extended laterally to the base of the greater trochanter and medially to the lesser trochanter. This required externally rotating the hip. Once the lesser trochanter had been identified, a neck cut was planned according to measurements from preoperative templating. A ruler was cut at the length measured between the superior aspect of the lesser trochanter and the collar of the prosthesis. This line was extended towards the inferior aspect of the lateral cobra retractor to plan a cut which would leave minimal residual femoral neck laterally. The neck was cut at 60 degrees of external rotation along that line. A second cut was performed to remove a large napkin ring and facilitate head extraction. The napkin ring cut and femoral head were removed.?? A broad anterior wall retractor was placed between the labrum and the anterior capsule so that the anterior capsule would prevent capturing and pinching the femoral nerve anteriorly. An additional retractor was placed on the posterior wall. External rotation and traction were applied through the [place] table so that the cut surface of the femoral neck would not restrict access to the acetabulum. The labrum was excised sharply and the pulvinar was excised with electrocautery to limit bleeding from branches of the obturator artery. Acetabular reamers were selected based on preoperative templating and measurements of the excised femoral head. These were introduced into the acetabulum. Fluoroscopy was utilized to replicate a standing AP pelvis radiograph by centering over the pelvis, rotating until there was appropriate symmetry between the obturator foramen, and introducing caudal tilt to match the position of the pubic symphysis relative to the sacrococcygeal junction according to the patient?s anatomy. Fluoroscopy was utilized to ensure appropriate reaming depth. Once satisfied with the reaming depth corresponding to the preoperative template and the pinch fit between the columns, an appropriate sized acetabular cup was selected which would provide 1 mm of press-fit. This cup was introduced and manipulated until appropriate abduction and anteversion angles were obtained with careful attention to appropriate abduction and anteversion angles as evaluated by the position of the cup relative to the anterior and posterior santana of the acetabulum and the AP fluoroscopy which recreated the patient?s standing radiograph. The cup was impacted into place. Peripheral osteophytes were removed. The acetabular liner was then placed with care to ensure locking of the locking mechanism.? Attention was then turned to the femur. All retractors were removed, traction was released, a retractor was placed in the interval between the hip capsule and the gluteus minimus, and the hip was externally rotated to 90 degrees. Traction was applied through the [place] table to tension the lateral capsule and this was released using electrocautery. Traction was released and a [place] hook was placed posteriorly around the proximal femur at the level of the vastus ridge. The tabl e height was lowered in order to restrict the tension on the anterior structures during hip hyperextension to limit the risk of femoral nerve palsy. With traction off and the hip at 90 degrees of external rotation, the hip was hyperextended and adducted while manually elevating the femur away from the acetabulum with the [place] hook to ensure it would not be caught behind the greater trochanter. An asymmetric retractor was placed over the calcar and a broad double-pronged retractor was placed over the greater trochanter. The tag stitch capturing the lateral leaflet of the capsule was moved to the medial side, leaving the conjoined and piriformis tendons isolated in the face of the greater trochanter. The hip was externally rotated and elevated. A release of the conjoined tendon was not necessary in order to obtain adequate exposure for broaching. The canal was opened with an opening broach and a rasp was used to remove cancellous bone. A rongeur was used to remove the residual lateral bone at the base of the greater trochanter to avoid placing the stem in varus. The femur was then broached to the appropriate sized stem yielding good rotational fit and fill of the canal as well as appropriate version of the stem trial. Neck and head trials were placed, all retractors were removed and the hip was returned to neutral abduction and extension. I then reduced the hip. Initial trialing was performed with a size 7 broach, a high offset neck and a +5 head. I initially manually externally rotated the hip and found I was unable to dislocate the hip. I then locked the hip in 45 degrees of external rotation and dropped it to the floor with traction off which demonstrated no instability. An AP pelvis fluoroscopic image matching the preoperative standing radiograph with both lesser trochanters visible and both hips in 40 degrees of external rotation demonstrated appropriate leg length and offset while using a long metal bar to map across the transitional line to compensate for any fluoroscopic distortion. AP and lateral hip fluoroscopic images were obtained to evaluate the broach size which demonstrated appropriate canal fill. The hip was dislocated and I returned to the broaching position. Based on my evaluation during initial trialing I planned to place the implants I had trialed with which matched the other side. The definitive stem was placed and the trunnion was cleaned and dried. I placed a ceramic head onto the trunnion and impacted it into place on the [place] taper.?? All retractors were removed and the hip was reduced. A dilute mixture of betadine and peroxide was used to bathe the soft tissues during final fluoroscopic assessment. Appropriate component positioning was confirmed on an AP pelvis radiograph with the operative and nonoperative legs in 40 degrees of external rotation, evaluating leg length and offset. Appropriate stem fill was evaluated on AP and lateral hip radiographs. No fractures were identified on these radiographs. There was no hip instability with maximum external rotation as well as a 45 degree drop test. The hip was copiously irrigated with pulse lavage. The capsule was closed with absorbable interrupted suture. The TFL fascia was closed with barbed suture while carefully protecting the lateral femoral cutaneous nerve from entrapment. A mixture of Exparel and local anesthetic was infiltrated throughout the soft tissues. The skin was closed with 2-0 and 3-0 sutures. Surgical glue was applied and a soft dressing was placed.??The sponge, instrument and needle counts were reported as being correct at the end of the case.??No obvious complications occurred. The patient was transferred from the [place] table back to a stretcher. The patient emerged from anesthesia without difficulty and was taken to the PACU in a stable condition.? Plan for aftercare: * Anterior hip precautions * Weightbearing as tolerated * Aspirin 81 twice per day for DVT prophylaxis * Anticipate discharge home tomorrow * Change into normal clothes upon arrival on the hospital floor * Mobilize in the halls as much as is logistically possible. If physical therapy is unavailable for mobilization, then patient should mobilize with nursing staff * Multimodal pain regimen with no IV opioids ordered. No NSAIDs ordered either given the patient's history of gastric bypass * Apply ice machine to operative hip. Ensure that sufficient ice is in the chamber for the pad to remain cold * Follow up at [facility] in 2 weeks * Detailed postoperative instructions available at [email or web address]
[2023-10-17] MEDS: METOCLOPRAMIDE 10 MG/2 ML INJ IV (16:14)
[2023-10-17] MEDS: fentaNYL 100 MCG/2 ML INJ IV (16:16)
[2023-10-17] MEDS: hydrOXYzine 50 MG/ML INJ 25 MG IM (16:18)
[2023-10-17] MEDS: OXYCODONE IR 5 MG TABLET PO ×2 (16:19→16:49)
[2023-10-17] MEDS: HYDROMORPHONE 1 MG INJ IV (16:31)
[2023-10-17] MEDS: MIDAZOLAM 2 MG/2 ML VIAL IV (16:42)
[2023-10-17] MEDS: ACETAMINOPHEN 325 MG TABLET 650 MG PO (17:53)
[2023-10-17] MEDS: LACTATED RINGERS 1,000 ML 100 ML IV (17:53)
--- NOTE | 2023-10-17 18:55 | PC.NURSE ---
Patient was given versed, fentanyl, hydroxizine, and 2 oral percolone prior to coming up to room. She will be due for more pain medication arohaydee 194. Her dressing to R.anterior hip is cdi. Patient ate well at dinner and is visiting with her now. She has an ice machine on her hip. Resting comfortably.
[2023-10-17] MEDS: OXYCODONE 5 MG/5 ML ORAL SOLUTION 10 MG PO ×2 (19:55→23:52)
[2023-10-17] MEDS: DOCUSATE 100 MG CAPSULE PO (21:24)
[2023-10-17] MEDS: ASPIRIN EC 81 MG TABLET PO (21:24)
[2023-10-18 03:29] VITALS: BP 125/65; PULSE 69; RESP 16; TEMP 36.6; O2SAT 99
[2023-10-18] MEDS: OXYCODONE 5 MG/5 ML ORAL SOLUTION 10 MG PO ×3 (04:08→17:44)
[2023-10-18] MEDS: LACTATED RINGERS 1,000 ML 100 ML IV (04:16)
[2023-10-18] MEDS: HYDROMORPHONE 0.5 MG INJ IV ×2 (05:52→08:47)
[2023-10-18 06:32] LABS: Hematocrit 31.1 % (36-46); Hemoglobin 10.5 g/dL (12.0-16.0)
[2023-10-18] MEDS: CEFAZOLIN 2 GM/100 ML PREMIX 100 ML IV (06:32)
[2023-10-18] MEDS: DOCUSATE 100 MG CAPSULE PO ×2 (08:08→20:58)
[2023-10-18] MEDS: ASPIRIN EC 81 MG TABLET PO ×2 (08:08→21:04)
[2023-10-18 08:14] VITALS: BP 123/73; PULSE 75; RESP 18; TEMP 36.3; O2SAT 99
--- NOTE | 2023-10-18 09:29 | PM.PNPO.1 ---
Subjective Subjective Date Patient Seen: 10/18/23 Time Patient Seen: 09:29 Interval history: Severe right hip pain. No nausea or vomiting. No shortness of breath or chest pain. at bedside. will be home to assist her. Status post Chevy-en-Y as well as gastrectomy. Exam Vital Signs (past 8 hours): - 10/18/23 03:29 10/18/23 08:14 Temperature 97.9 F 97.3 F L Pulse Rate 69 75 Respiratory Rate 16 18 Blood Pressure 125/65 123/73 Pulse Oximetry 99 99 Oxygen Flow Rate 0 Oxygen Delivery Method Nasal Cannula Oxygen Flow Rate 0 Narrative Exam Narrative: 48-year-old female sitting in bedside chair in obvious discomfort. Hip dressing is clean, dry and intact. Motor functions intact bilateral lower extremities. Const General: cooperative Nutritional Appearance: obese (BMI 39.1) Orientation: alert Resp Effort & Inspection: normal respiratory effort and able to speak in complete sentences Objective Labs 10/18/23 05:10 Labs: Laboratory Results - last 24 hr 10/18/23 05:10 Hgb 10.5 L Hct 31.1 L PFSH Medical History History of COVID-19 (2019) Anxiety Depression PTSD (post-traumatic stress disorder) Panic disorder RLS (restless legs syndrome) Neuropathy Fibromyalgia Surgical History History of surgery Hx of removal of cyst Hx of laminectomy (2000) History of History of hysterectomy Hx of cholecystectomy History of gastric bypass (2007) History of total left hip replacement (07/25/23) Social History household members: spouse Smoking Status: Former smoker alcohol intake: current Assessment & Plan Post-op Postoperative Procedures: Procedures Operation Date: 10/17/23 13:45 Actual Procedure Side Surgeon p Total Hip Arthroplasty/Anterior Approach Right Corey Cason MD Postoperative day: 1 Postoperative status: marginal pain control Postoperative status narrative: Severe right hip pain status post right total hip arthroplasty Postoperative plan narrative: Pain control reviewed with Dr. Cason Anesthesia consult for block to assist in pain control Multimodal pain management, no NSAIDs due to history of gastrectomy Aspirin 81 mg b.i.d. for DVT prophylaxis Anterior hip precautions Weight-bearing as tolerated Apply ice machine to operative hip Follow up outpatient [facility] in 2 weeks Disposition home 1-2 days Quality VTE Deep Vein Thrombosis/Pulmonary Embolism Present on Admission: No
[2023-10-18] MEDS: KETOROLAC 30 MG/ML VIAL 7.5 MG IV (11:36)
[2023-10-18] MEDS: OXYCODONE 5 MG/5 ML ORAL SOLUTION 15 MG PO ×2 (11:36→20:56)
[2023-10-18] MEDS: polyethylene glycoL 3350 17 GM POWD.PACK PO (11:36)
--- NOTE | 2023-10-18 11:48 | PT-IP ANOTE ---
attemped PT eval x 2. 1st attempt: pt stated that she is not ready for PT and they are trying to manage her pain at this time. talked with nurse and stated that he has given her IV dilaudid and oral pain meds already. nurse talked to pt and pt stated she still has high pain and wants maybe try PT in half an hour. 2nd attempt: checked back on pt and pt stated that they will be managing her pain and she will just have PT tomorrow. stated that they are trying to see if pain will be better and if not, she might get a nerve block later in the evening. pt refused PT and stated that she will be staying for another night and PT to check on her tomorrow.
[2023-10-18] MEDS: ACETAMINOPHEN IV 1,000 MG/100 ML VIAL 400 MG IV ×3 (12:45→21:02)
--- NOTE | 2023-10-18 12:46 | CM.DANOTE ---
Initial DCP Assessment Note Pt is a 48 yo female, resident of [place], now POD#1 from right [facility] by Dr Cason. Patient has her left hip replaced in July. PMH includes: Chevy-en-Y as well as gastrectomy, PTSD, panic disorder, anxiety, depression, fibromyalgia PCP: Jayme Schultz: [facility] Reviewed chart, pt discussed in multidisciplinary rounds this morning. Patient's pain management has been difficult this morning related to patient's gastrectomy and this malabsorption of pain medications. Attempted bedside assessment, patient in pain; will plan to return when patient is more comfortable. Therapies pending. Plan: Discharge home w/spouse to assist anticipated (patient went home from [facility] in July), outpatient PT likely. CM team will plan to follow clinical course closely in case any DC needs or concerns arise. SEBLE Saleh Discharge Planning/Care Management CM Discharge Assessment Start: 10/18/23 12:40 Freq: Status: Active Protocol: Document 10/18/23 12:41 LORI (Rec: 10/18/23 12:46 LORI [id number]) Discharge Planning Assessment Assigned Director Of Bands SEBLE Dyer DPOA/Assigned Designee Name Vipin Espinoza, spouse Contact Information [phone] Advance Directives? No History Provided By Patient,Significant Other, Medical Record Prior Living Arrangements House Household Members spouse Type of transporation used prior to Drives own vehicle admit Independent with ADL's Yes Is patient alert and oriented? Yes Patient/Family Preference OP PT Therapy Barriers to Discharge No Comment Home w/spouse Discharge Plan Home Transportation Arrangement Spouse Referrals Initiated None needed
--- NOTE | 2023-10-18 14:45 | PT.IIE ---
Current Diagnoses Unilateral primary osteoarthritis, right hip (10/17/23) Surgery Performed Operation Date: 10/17/23 13:45 Actual Procedures p Total Hip Arthroplasty/Anterior Approach(Right) - Corey Cason MD Surgical History (Last Reviewed 10/18/23 @ 09:33 by Sebastián Alston PA-C) History of History of gastric bypass (2007) History of hysterectomy History of surgery History of total left hip replacement (07/25/23) Hx of cholecystectomy Hx of laminectomy (2000) Hx of removal of cyst Medical History (Last Reviewed 10/18/23 @ 09:33 by Sebastián Alston PA-C) Anxiety Depression Fibromyalgia History of COVID-19 (2019) Neuropathy Panic disorder PTSD (post-traumatic stress disorder) RLS (restless legs syndrome) Physical Therapy Inpatient Evaluation/Re-Eval M1 PT/OT-IP Prior Functional Status Start: 10/18/23 15:39 Freq: NEEDED Status: Active Protocol: Document 10/18/23 14:45 AB (Rec: 10/18/23 15:58 AB [id number]) Medical Review Prior Functional Status Medical History Reviewed Yes Communication able to make needs known Mobility and Gait pt stated that she was modified independent with all mobilities and ambulation without AD but usually furniture cruises and holds on to her 's arm for outdoor mobility. Social History Household Members spouse Living Arrangements House Number of Floors (Floors) Two Floors Number of Stairs To Enter/Railing? no steps to enter 20 steps R rail ascending to bedroom level Home Environment Standard Height Toilet,Tub/ Shower Home Equipment Front Wheel Walker,Four Wheel Walker,Tub Transfer Bench, Shower Seat with Backrest,Hand Held Shower,Grab Bars In Shower Additional Social History Comment pt will be off work to assist pt at home pt has a hospital bed with bilateral rails M2 PT-IP Current Condition Start: 10/18/23 15:39 Freq: NEEDED Status: Active Protocol: Document 10/18/23 14:45 AB (Rec: 10/18/23 15:58 AB [id number]) Physical Therapy Current Condition Current Condition Evaluation Date 10/18/23 Treatment Diagnosis s/p R SANTOSH atnerior; difficulty in walking Onset Date 10/17/23 M3 PT-IP Subjective Start: 10/18/23 15:39 Freq: NEEDED Status: Active Protocol: Document 10/18/23 14:45 AB (Rec: 10/18/23 15:58 AB [id number]) Subjective Physical Therapy Visit Type Type Initial Evaluation Visit Start Time 14:45 Visit Stop Time 15:15 Notes nurse informed PT that pt's pain if better controlled this afternoon and pt agreeable to do PT Number of INSOLVENCY CONSULTANT Visits 0 Therapy Pain Assessment Pain When Pain Assessed At Rest Pain Present Pain Present Pain Reported Location right hip Intensity 4 Scale Used Numeric (0 - 10) Pain Management Techniques Distraction,Modification of Treatment,Re-positioning, Timing of Activity with Medications M4 PT-IP Mobility and Gait Start: 10/18/23 15:39 Freq: NEEDED Status: Active Protocol: Document 10/18/23 14:45 AB (Rec: 10/18/23 15:58 [id number]) PT-Transfer Assessment Sit to and From Stand Sit to and from Stand Standby Assistance,1 Person Assistance,Use of Upper Extremities Equipment Transfer Assistive Device Gait Belt,Front Wheeled Walker Orthotic/Prosthetic Devices or Brace: No Comments Mobility Comments pt sitting on EOB and now agreeable to do PT. stated that she just wants it over. stated that she was wanting PT one hour ago where pain meds are still working. informed pt that PT has other patients that was needs to been prior to her. educated pt regarding anterior hip precautions with pt and stated that she knows them. when reviewed, pt needs cues. pt just had her L SANTOSH last july of this year. pt completed sit to stand from EOB SBA and ambulated in room ~ 30 ft SBA. slow paced and standing rest breaks in between. c/o increase pain midway with ambulation. pt sat on EOB. refused to do stair climbing and bed mobility. stated that that is about all she could do for now. stated that she will wait for spouse to assist her and does not want PT to assist her back in bed. pt asked for pain meds and nurse informed. Gait Assessment Gait Gait Assistance Required: Standby Assistance Distance (Feet) 30 Able to Maintain Weight Bearing Status Yes During Gait Assistive Devices Assistive Device Gait Belt,Front Wheeled Walker Orthotic/Prosthetic Devices or Brace: No Gait Deviations General Gait Pattern Decreased Feet Clearance Factors Limiting Gait Function Factors Limiting Gait Function Decreased Activity Tolerance, Decreased Strength,Limited Range of Motion,Pain,Poor Balance,Poor Safety Awareness PT-Balance Assessment Sitting Balance and Reactions Static Sitting Balance Ability Good Dynamic Sitting Balance Ability Good Standing Balance and Reactions Static Standing Balance Ability Fair Dynamic Standing Balance Ability Fair Device Used FWW M5 PT-IP Objective Assessments Start: 10/18/23 15:39 Freq: NEEDED Status: Active Protocol: Document 10/18/23 14:45 AB (Rec: 10/18/23 15:58 AB [id number]) Orientation Orientation/Cognition Level of Alertness Alert Orientation Name,Age,Birthday,Month,Date, Year,Day of Week,Place, Situation Safety Awareness Decreased Safety Awareness Memory Description Short Term Impaired Strength Lower Extremity Strength Assessment Right Impaired Hip 3-/5 Knee 3+/5 Coordination Assessment Gross Coordination Gross Coordination WNL Sensation Assessment Sensation Gross Sensation WNL Muscle Tone Muscle Tone WNL Yes M6 PT-IP Treatment Start: 10/18/23 15:39 Freq: NEEDED Status: Active Protocol: Document 10/18/23 14:45 AB (Rec: 10/18/23 15:58 AB [id number]) Physical Therapy Treatment Education Education Provided Precautions,Weight Bearing Status,Post-Op Packet,Safety M7 PT-IP Assessment and Plan Start: 10/18/23 15:39 Freq: NEEDED Status: Active Protocol: Document 10/18/23 14:45 AB (Rec: 10/18/23 15:58 AB [id number]) PT Summary Assessment and Plan Potential Rehabilitation Potential Fair Status of Condition at Evaluation Evolving Summary Impairments Pain,ROM,Strength,Balance, Coordination,Sensation,Bed Mobility,Transfers,Gait, Activity Tolerance Assessment Summary pt is a 48 y/o F s/p R SANTOSH anterior POD 1. pt with c/o increase hip pain affecting mobility and activity tolerance. pt ambulated in room using FWW SBA but refused to do bed mobility and stair climbing. pt plans to go home with spouse to assist her at home. Pt just had her L SANTOSH anterior last july of this year. caregiver training was conducted at that time and pt stated that spouse will be able to assist her. spouse stated that he still knows how to assist pt. will continue to assess progress. Goals Bed Mobility Goal Independent Transfer Goal Independent,Front Wheeled Walker Gait Goal Independent,Front Wheel Walker Gait Distance 200 Other Goals up/down 20 steps R rail ascending mod I Days to Meet Goals 5 Frequency of Treatment Frequency Of Treatment Twice a Day Treatment Plan Physical Therapy Treatment Plan Bed Mobility Training,Transfer Training,Gait Training, Therapeutic Exercise,Balance Retraining,Post Op Education, Discharge Planning,Hot or Cold Pack,Neuromuscular Re-ed, Coordination Retraining,Manual Therapy Precautions Anterior Hip Precautions No Hip Extension,No Hip External Rotation Weight Bearing Status Weight Bearing Status Weight Bear as Tolerated Allowed Weight Bearing Amount (enter % RLE WBAT or #) (%) Recommendations To Nursing Amount of Assist Needed 1 Person Assist Discharge Recommendations PT Discharge Recommendations Home with Assistance, Outpatient PT Transportation Needs at Discharge Private Vehicle
[2023-10-18] MEDS: HYDROMORPHONE 0.5 MG INJ 0.75 MG IV (15:15)
[2023-10-18 20:29] VITALS: BP 100/71; PULSE 104; RESP 18; O2SAT 96
[2023-10-18 20:33] VITALS: TEMP 36.1
[2023-10-18] MEDS: SENNOSIDES 8.6 MG TABLET 17.2 MG PO (20:58)
[2023-10-18] MEDS: SODIUM CHLORIDE 0.9% FLUSH 10 ML IV (21:02)
--- NOTE | 2023-10-19 01:05 | PC.NURSE ---
Patient is alert and oriented. Breath sounds CTA with RA sat of 96%. HRR but tachy in low 100's. BP soft at 100/71 but she reports that has been her typical BP over past couple of months; currently asymptomatic but reports she has had dizziness/lightheadedness at times so reminded to call for assist and sit on edge of bed for several minutes prior to standing up. Denies nausea. BT present and is passing flatus. Denied any dysuria, frequency or urgency with urination. Is able to turn herself in bed and is out of bed with walker and 1 assist. Has chronic weakness in left ankle (her report) and now new weakness in right LE related to SANTOSH. Aquacel dressing to right anterior hip is CDI; some bruising noted to lateral hip. CMS is intact other that the weakness. Edema present in right LE. Has been having pain control issues and was weepy and complaining of pain earlier so medicated with oxycodone at 2055 and is currently asleep. Refused SCD's tonight and verbalizes understanding to ankle wave when awake. Fall risk score is high but is oriented and spouse in room and assists patient to bathroom so alarm is not in use. Verbalizes to call for staff assist when needed.
[2023-10-19] MEDS: OXYCODONE 5 MG/5 ML ORAL SOLUTION 15 MG PO ×2 (02:43→07:40)
[2023-10-19] MEDS: HYDROMORPHONE 0.5 MG INJ 0.75 MG IV ×2 (03:34→08:08)
[2023-10-19] MEDS: SODIUM CHLORIDE 0.9% FLUSH 10 ML IV (03:35)
[2023-10-19] MEDS: DOCUSATE 100 MG CAPSULE PO (08:09)
[2023-10-19] MEDS: ASPIRIN EC 81 MG TABLET PO (08:09)
[2023-10-19] MEDS: polyethylene glycoL 3350 17 GM POWD.PACK PO (08:09)
--- NOTE | 2023-10-19 08:55 | P.PN_ITS ---
Subjective Subjective Interval history: Patient seen this morning. Pain much improved as compared to yesterday. She had significantly worse pain than after her prior hip replacement postoperatively. This is presumably due to our strict was holding NSAIDs during this procedure. I believe that she had received IV NSAIDs after having her previous hip replacement from myself earlier this year. Yesterday her Tylenol and oxycodone dosages were increased and we gave her a dosage of IV Toradol 7.5 mg. Today she reports that her pain is much improved and is requesting to go home. Exam Vital Signs (past 8 hours): Oxygen Delivery Method Room Air Oxygen Flow Rate 0 Narrative Exam Narrative: Right lower extremity dressing clean dry and intact. Able to maintain a straight leg raise demonstrating intact femoral nerve function. Flexion and extension of the hallux and ankle intact. Sensation intact to light touch in L2 through S1 nerve distributions. Const Other: Patient showing no outward signs of distress such as grimacing, tachypnea, wincing, or other obvious signs of pain. This is much improved as compared to my last examination of her which was postoperatively following surgery Objective Labs 10/18/23 05:10 [facility] Medical History History of COVID-19 (2019) Anxiety Depression PTSD (post-traumatic stress disorder) Panic disorder RLS (restless legs syndrome) Neuropathy Fibromyalgia Surgical History History of surgery Hx of removal of cyst Hx of laminectomy (2000) History of History of hysterectomy Hx of cholecystectomy History of gastric bypass (2007) History of total left hip replacement (07/25/23) Social History household members: spouse Smoking Status: Former smoker alcohol intake: current Assessment & Plan Assessment and plan (1) S/P total hip arthroplasty: Status: Acute Plan Pain significantly improved today. Plan for discharge home. Home medication regimen to include liquid oxycodone, liquid Tylenol, ice. She should receive an additional dosage of 7.5 mg IV Toradol before leaving today. We did discuss that after she leaves the hospital she will not be receiving additional NSAIDs due to her inability to take them orally however I feel that with her improved pain control at this point in time we should be safe for her to be at home. Discharge orders have been entered and we will follow up with her in the outpatient setting Quality VTE Deep Vein Thrombosis/Pulmonary Embolism Present on Admission: No
--- NOTE | 2023-10-19 08:59 | P.DS_ITS ---
History of Present Illness History of Present Illness Chief complaint: Right SANTOSH anterior Narrative: Patient underwent uncomplicated right total hip arthroplasty. Remained inpatient until postoperative day 2 secondary to pain control challenges. Multiple alterations were made on postoperative day 1 with resultant improvement in pain. Patient's history is most noteworthy for a Chevy-en-Y gastric bypass which precluded the use of oral NSAIDs. At the time of discharge she was voiding spontaneously, had pain which was appropriately controlled, and was mobilizing appropriately Discharge Providers Provider Date of admission: 10/17/23 16:55 Discharge Date: 10/19/23 Primary care physician: Jayme Alamo MD Consults: 10/17/23 07:25 Consult to Anesthesiology Routine Comment: Consulting Provider: Anesthesiologist Reason for consultation: Regional block for post operative pain control Has provider been notified: No 10/17/23 17:09 Consult to Discharge Planning Routine Comment: Consult to Physical Therapy Evaluate & Treat Comment: Physician Instructions: post op SANTOSH protocol Discharge provider: Corey Cason MD Summary Hospital Course Discharge Diagnosis: Status post right total hip arthroplasty Hospital Course: Patient discharge postoperative day 2 following right total hip arthroplasty. Patient has previously undergone left total hip arthroplasty and has her home already set up for recovery based on her prior experience with the other side Exam Vital Signs (past 8 hours): Oxygen Delivery Method Room Air Oxygen Flow Rate 0 Narrative Exam Narrative: Right lower extremity dressing clean dry and intact. Flexing extending hallux ankle and knee. Sensation intact to light touch in L2 through S1 nerve distributions. Appropriate ecchymosis around the surgical site Objective Labs 10/18/23 05:10 [facility] Medical History History of COVID-19 (2019) Anxiety Depression PTSD (post-traumatic stress disorder) Panic disorder RLS (restless legs syndrome) Neuropathy Fibromyalgia Surgical History History of surgery Hx of removal of cyst Hx of laminectomy (2000) History of History of hysterectomy Hx of cholecystectomy History of gastric bypass (2007) History of total left hip replacement (07/25/23) Social History household members: spouse Smoking Status: Former smoker alcohol intake: current Discharge Plan Discharge Plan Patient Disposition: Home Provider Discharge Comment: DC prescriptions sent to pharmacy through [facility] EMR. Prescriptions sent were liquid oxycodone, liquid tylenol and ODT zofran. Patient also has stool softeners. See [email or web address].[email or web address] for detailed DC instructions Discharge orders & Medications Prescriptions: Discontinued tranexamic acid 650 mg Tablet 1,300 mg PO TID Follow up/Referrals: Corey Cason MD [Physician] - 10/29/23 3:10 pm (Follow up w/ Sebastián Alston PA-C, at [facility] in [place].) Jayme Alamo MD [Primary Care Provider] - Diet/Activity/Treatments Diet: Diet as Tolerated Activity: Weightbearing as tolerated. Cold/Heat Therapy: Ice to hip as needed for pain. Skin/Wound/Dressing Care Report to your healthcare provider any signs of infection, such as:: chills, fever, night sweats, unusual drainage and unusual redness Visit Report/Discharge Packet Instructions: DI for Hip Replacement Stand Alone Forms: Patient Portal/API, Stroke Signs & Symptoms, Surgery Discharge Discharge Data Primary Care Provider: Jayme Alamo Quality VTE Deep Vein Thrombosis/Pulmonary Embolism Present on Admission: No
--- NOTE | 2023-10-19 10:36 | PT.IPTN ---
Current Diagnoses Unilateral primary osteoarthritis, right hip (10/17/23) Presence of unspecified artificial hip joint (10/17/23) Surgery Performed Operation Date: 10/17/23 13:45 Actual Procedures p Total Hip Arthroplasty/Anterior Approach(Right) - Corey Cason MD Physical Therapy Treatment Note M2 PT-IP Current Condition Start: 10/18/23 15:39 Freq: NEEDED Status: Active Protocol: Document 10/18/23 14:45 AB (Rec: 10/18/23 15:58 AB [id number]) Physical Therapy Current Condition Current Condition Evaluation Date 10/18/23 Treatment Diagnosis s/p R SANTOSH atnerior; difficulty in walking Onset Date 10/17/23 M3 PT-IP Subjective Start: 10/18/23 15:39 Freq: NEEDED Status: Active Protocol: Document 10/19/23 08:45 MB (Rec: 10/19/23 10:35 MB [id number]) Subjective Physical Therapy Visit Type Type Treatment Note Visit Start Time 08:45 Visit Stop Time 09:20 Number of 3D ARTIST Visits 0 Physical Therapy Visit Comments Patient Comments Pt would like to finish breakfast but she is ready to d/c and so she is agreeable to PT. Therapy Pain Assessment Pain When Pain Assessed At Rest Pain Present Pain Present Pain Reported Location right hip Intensity 5 Scale Used Numeric (0 - 10) Pain Management Techniques Distraction,Re-positioning, Timing of Activity with Medications M4 PT-IP Mobility and Gait Start: 10/18/23 15:39 Freq: NEEDED Status: Active Protocol: Document 10/19/23 08:45 MB (Rec: 10/19/23 10:35 MB [id number]) PT-Bed Mobility Assessment Supine to Sit Supine to Sit Standby Assistance,1 Person Assistance,Head of Bed Elevated,Bedrails Scooting Scooting to Edge of Bed Standby Assistance PT-Transfer Assessment Sit to and From Stand Sit to and from Stand Standby Assistance,1 Person Assistance,Use of Upper Extremities Equipment Transfer Assistive Device Gait Belt,Front Wheeled Walker Orthotic/Prosthetic Devices or Brace: No Transfers Transfer Destination Bed Transfer Technique Ambulation Transfer Ability Level of Assist Standby Assistance,1 Person Assistance,Use of Upper Extremities Comments Mobility Comments Pt states that she has a hospital bed at home and that she does not lie flat at home and so BP and HR assessed from sitting position in bed with BP and HR right UE: sitting 134/78, 123; standing 127/81, 156; standing 1' 136/84, 144. PT does palpate HR and she is tachycardic throughout mobility. Pt is concerned about dressing and being covered and PT steps out as assists her EOB. Gait Assessment Gait Gait Assistance Required: Independent,Standby Assistance ,1 Person Assist Distance (Feet) 80 Able to Maintain Weight Bearing Status Yes During Gait Assistive Devices Assistive Device Gait Belt,Front Wheeled Walker Orthotic/Prosthetic Devices or Brace: No Gait Deviations General Gait Pattern Decreased Feet Clearance Factors Limiting Gait Function Factors Limiting Gait Function Decreased Activity Tolerance, Pain Comments Gait Comments Slow gait, raised walker to assist with back Stair Climbing Assessment Evaluation Level of Assist On Stairs Standby Assistance,1 Person Assistance Devices Stair Climbing Assistive Devices Right Railing Technique/Endurance Stair Climbing Direction Ascend and Descend Stair Climbing Technique Step to Step Number of Steps Climbed 3 Stair Climbing Set # Repetitions (reps) 1 PT-Balance Assessment Sitting Balance and Reactions Static Sitting Balance Ability Good Dynamic Sitting Balance Ability Good Standing Balance and Reactions Static Standing Balance Ability Good Dynamic Standing Balance Ability Good Device Used RW M5 PT-IP Objective Assessments Start: 10/18/23 15:39 Freq: NEEDED Status: Active Protocol: Document 10/18/23 14:45 AB (Rec: 10/18/23 15:58 AB [id number]) Orientation Orientation/Cognition Level of Alertness Alert Orientation Name,Age,Birthday,Month,Date, Year,Day of Week,Place, Situation Safety Awareness Decreased Safety Awareness Memory Description Short Term Impaired Strength Lower Extremity Strength Assessment Right Impaired Hip 3-/5 Knee 3+/5 Coordination Assessment Gross Coordination Gross Coordination WNL Sensation Assessment Sensation Gross Sensation WNL Muscle Tone Muscle Tone WNL Yes M6 PT-IP Treatment Start: 10/18/23 15:39 Freq: NEEDED Status: Active Protocol: Document 10/19/23 08:45 MB (Rec: 10/19/23 10:35 MB [id number]) Physical Therapy Treatment Education Education Provided Precautions M7 PT-IP Assessment and Plan Start: 10/18/23 15:39 Freq: NEEDED Status: Active Protocol: Document 10/19/23 08:45 MB (Rec: 10/19/23 10:35 MB [id number]) PT Summary Assessment and Plan Potential Rehabilitation Potential Good Status of Condition at Evaluation Evolving Summary Impairments Pain,Bed Mobility,Transfers, Gait,Activity Tolerance Progress Towards Goals Safe For Discharge Assessment Summary Pt is not orthostatic with mobility today and she is very tachycardic. Her is nearby for treatment and he will assist her at home. Pt does well with stair training. She is ready to d/c home with assistance and she has OPPT set-up. Goals Bed Mobility Goal Independent Transfer Goal Independent,Front Wheeled Walker Gait Goal Independent,Front Wheel Walker Gait Distance 200 Other Goals up/down 20 steps R rail ascending mod I Days to Meet Goals 5 Frequency of Treatment Frequency Of Treatment Discharge Precautions Anterior Hip Precautions No Hip Extension,No Hip External Rotation Weight Bearing Status Weight Bearing Status Weight Bear as Tolerated Allowed Weight Bearing Amount (enter % RLE WBAT or #) (%) Recommendations To Nursing Amount of Assist Needed 1 Person Assist Discharge Recommendations PT Discharge Recommendations Home with Assistance, Outpatient PT Transportation Needs at Discharge Private Vehicle
[2023-10-19] MEDS: OXYCODONE 5 MG/5 ML ORAL SOLUTION 10 MG PO (10:59)
--- NOTE | 2023-10-19 11:46 | CM.DPNOTE ---
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 Per ortho surgeon, medically cleared to dc home today. Per PT in morning multidisciplinary rounds, pt did well with stairs and cleared for home with assistance. Per previous DCP notes, no CM needs at this time. Per RN, no obvious DCP/CM needs at this time Plan: home with spouse support today. CM team will continue to follow in case any DCP needs arise. SEBLE Mendenhall
--- NOTE | 2023-10-19 12:15 | PC.NURSE ---
Discharge Note Patient A&O, VSS, RA, no complaints of pain/discomfort. Discharge plan reviewed with patient and patient agreeable to plan. PIV discontinued. Patient able to dress self and pack all belongings. Patient taken down via wheelchair to POV.
== END 2023-10-19 11:00 | disposition home or self-care (01) ==
LOC: AC 11:43
PROVIDERS: Admitting Provider Orthopaedic Surgery Adult Reconstructive Orthopaedic Surgery; PCP Family Medicine; Referring Provider Family Medicine; Visit Provider Orthopaedic Surgery Adult Reconstructive Orthopaedic Surgery
PROC: (CPT 27130; principal; 2023-10-17 13:45)
DX: M16.11 Unilateral primary osteoarthritis, right hip (principal); Z96.642 Presence of left artificial hip joint
CPT/HCPCS: 27130; 36415; 73502; 76000; 85014; 85018; 97116; 97162; 97530; C1776; G0378; C9290; J0136; J0171; J0690; J1100; J1170; J1885; J2250; J2405; J2704; J2765; J3010; J3410